=== PATIENT | female | born 1975 | race American Indian/Alaskan Native ===

== ENCOUNTER 2019-01-19 17:22 | Outpatient (CLI) | payer OTHER ==
--- NOTE | 2019-01-19 22:51 | XRay Report ---
PROCEDURE: XR KNEE 3V RT TECHNIQUE: Right knee radiographs, AP, lateral, and sunrise views. HISTORY: RT KNEE PAIN COMPARISONS: None FINDINGS: Fracture (s) and/or Dislocation(s): None Alignment: Normal Joint space(s): Normal Soft tissues: Normal Bone mineralization: Mild degree osteophyte formation is noted Foreign bodies: None IMPRESSION: Mild degree osteoarthritis This document is electronically signed by Gab Quiroz MD., Jan 19 2019 10:49:26 PM ET
== END 2019-01-19 17:23 | disposition home or self-care (01) ==
LOC: XRAY 17:22
PROVIDERS: ATTEND Internal Medicine
DX: M17.11 Unilateral primary osteoarthritis, right knee (principal); M25.761 Osteophyte, right knee